=== PATIENT | male | born 1960 | race African-American/Black ===

== ENCOUNTER 2018-02-26 20:22 | Emergency (ER) | payer BC ==
--- NOTE | 2018-02-26 20:28 | PDOC ---
History of Present Illness - History of Present Illness Initial Comments: 02/26/18 21:12 The patient is a 57 year old male, with a significant PMH of right total hip replacement, who presents to the emergency department with right hip pain s/p slip and fall just prior to arrival. The patient states that he was taking a shower in the tub when he slipped and fell on to the right hip. The patient denies any head strike/ injury or loss of consciousness. The patient states after the fall he was able to ambulate but reports pain with ambulation. The patient states he had a total right hip replacement on February 06, 2018. He denies any numbness, tingling or loss of sensation. Denies back pain or neck pain. Denies any weakness. Denies any bowel or bladder incontinence. The patient denies chest pain, shortness of breath, headache and dizziness. Denies fever, chills, nausea, vomit, diarrhea and constipation. Denies dysuria, frequency, urgency and hematuria. PAST MEDICAL HISTORY: right hip osteoarthritis PAST SURGICAL HISTORY: right total hip replacement FAMILY HISTORY: no pertinent history SOCIAL HISTORY: Pt lives with family and is employed. MEDICATIONS: reviewed ALLERGIES: As per nursing notes Review of Systems: General: No fevers or chills, no weakness, no weight loss HEENT: No change in vision. No sore throat,. No ear pain CardioVascular: No chest pain or shortness of breath Respiratory:No cough, or wheezing. Gastrointestinal: no nausea, vomiting, diarrhea or constipation, No rectal bleeding Genitourinary: No dysuria, hematuria, or frequency Musculoskeletal: +Right hip pain. Neurologic: No headache, vertigo, dizziness or loss of consciousness Psychiatric: nor depression Skin: No rashes or easy bruising Endocrine: no increased thirst or abnormal weight change Allergic: no skin or latex allergy All other systems reviewed and normal Physical Exam: GENERAL: The patient is awake, alert, and fully oriented, in no acute distress. HEAD: Normal with no signs of trauma. EYES: Pupils equal, round and reactive to light, extraocular movements intact, sclera anicteric, conjunctiva clear. EXTREMITIES: Right leg is not externally rotated or shortened. ROM not tested until after x-ray rules out dislocation. +Tenderness on palpation over the lateral right hip. Neurovascular intact. NEUROLOGICAL: Normal speech, normal gait. PSYCH: Normal mood, normal affect. SKIN: Warm, Dry, normal turgor, no rashes or lesions noted. <Guido Dominique - Last Filed: 02/26/18 21:12> - General History Source: Patient Exam Limitations: No Limitations - History of Present Illness Initial Comments: X-ray reviewed by me shows a displaced fracture of the greater trochanter does not involve the prosthesis. 02/26/18 22:09 A portion of this note was documented by scribe services under my direction. I have reviewed the details of the note, within reason, and agree with the documentation. The case summary and management plan written by me. Assessment and plan: This is a 57-year-old male who comes in complaining of right hip pain. Patient's 3 week status post hip replacement. Patient fell in the bathtub. On my exam there is tenderness and ecchymosis over the lateral portion of the hip patient however is able to walk and bear weight. Patient had an x-ray that was positive for a displaced fracture of the greater trochanter does not involve the prosthesis. X-rays were sent to Dr. Moore who was patient's orthopedic surgeon. Patient will follow up with Dr. Moore next week. <Arnie Borjas I - Last Filed: 02/26/18 23:30> - General Chief Complaint: Injury Stated Complaint: RT HIP PAIN S/P SLIP AND FALL Time Seen by Provider: 02/26/18 20:27 Past History <Guido Dominique - Last Filed: 02/26/18 21:12> - Past Medical History Anemia: No Asthma: No Cancer: No Cardiac Disorders: No CVA: No COPD: No CHF: No Dementia: No Diabetes: Yes (2002) GI Disorders: No Disorders: No HTN: Yes Hypercholesterolemia: Yes Liver Disease: No Seizures: No Thyroid Disease: No - Surgical History Abdominal Surgery: No Appendectomy: No Cardiac Surgery: No Cholecystectomy: No Lung Surgery: No Neurologic Surgery: No Orthopedic Surgery: Yes (DANYA SHOULDER SX X2 ON LEFT/RIGHT KNEE ARTHROSCOPY) - Suicide/Smoking/Psychosocial Hx Smoking History: Never smoked Have you smoked in the past 12 months: No Hx Alcohol Use: Yes (OCCASIONAL) Drug/Substance Use Hx: No Substance Use Type: Alcohol Hx Substance Use Treatment: No <Arnie Borjas I - Last Filed: 02/26/18 23:30> - Past Medical History Allergies/Adverse Reactions: Allergies Allergy/AdvReac Type Severity Reaction Status Date / Time No Known Drug Allergies Allergy Verified 02/26/18 20:23 Home Medications: Ambulatory Orders Dulaglutide [Trulicity] 1.5 mg SQ WEEKLY 01/30/18 Insulin Degludec [Tresiba Flextouch U-100] 40 unit SQ DAILY 01/30/18 Metformin HCl [Glucophage] 500 mg PO BID 01/30/18 Metoprolol Tartrate 50 mg PO DAILY 01/30/18 Valsartan/Hydrochlorothiazide [Valsartan-Hctz 320-25 mg Tab] 1 each PO DAILY 12/12 Ascorbic Acid [Vitamin C -] 500 mg PO BID tablet 02/07/18 Aspirin [ASA -] 325 mg PO DAILY@0800 tablet 02/07/18 Multivitamins [Multivit ([facility] Formulary)] 1 tab PO DAILY tab 02/07/18 Oxycodone HCl/Acetaminophen [Percocet 5-325 mg Tablet] 1 - 2 tab PO Q4H PRN #60 tablet MDD 10 02/07/18 Sennosides/Docusate Sodium [Pericolace -] 2 tablet PO BID tablet 02/07/18 traMADol HCL [Ultram -] 50 mg PO Q4H PRN #42 tablet MDD 6 02/07/18 *Physical Exam - Vital Signs Last Vital Signs Temp Pulse Resp BP Pulse Ox 98.4 F 78 18 118/84 100 02/26/18 20:22 02/26/18 20:22 02/26/18 20:22 02/26/18 20:22 02/26/18 20:22 <Guido Dominique - Last Filed: 02/26/18 21:12> *DC/Admit/Observation/Transfer - Attestations Scribe Attestion: 02/26/18 21:13 Documentation prepared by Guido Dominique, acting as medical collector for Arnie Borjas MD. <Guido Dominique - Last Filed: 02/26/18 21:12> - Discharge Dispostion Decision to Admit order: No <Arnie Borjas I - Last Filed: 02/26/18 23:30> Diagnosis at time of Disposition: Acute right hip pain - Discharge Dispostion Disposition: HOME Condition at time of disposition: Stable - Referrals Referrals: Ric Aleman [Primary Care Provider] - - Patient Instructions Additional Instructions: Take you pain medications as perscribed for pain. Call Dr. Moore on tuesday for followup appointment. Return for worsening pain or any concerns. - Post Discharge Activity
[2018-02-26 20:36] VITALS: BP 118/84; PULSE 78; TEMP 98.4; BMI 32.8
== END 2018-02-26 21:42 | disposition home or self-care (01) ==
LOC: FER 20:22
DX: M25.551 Pain in right hip (principal); W18.2XXA Fall in (into) shower or empty bathtub, initial encounter; Y93.E1 Activity, personal bathing and showering; Y92.002 Bathroom of unspecified non-institutional (private) residence as the place of occurrence of the external cause; Z96.641 Presence of right artificial hip joint; I10 Essential (primary) hypertension; E11.9 Type 2 diabetes mellitus without complications; E78.00 Pure hypercholesterolemia, unspecified
CPT/HCPCS: 73523-TC-FY; 99282-25

== ENCOUNTER 2018-05-11 12:43 | Emergency (ER) | payer BC ==
[2018-05-11 12:47] VITALS: BP 122/71; PULSE 86; TEMP 98.6; BMI 32.8
--- NOTE | 2018-05-11 13:12 | PDOC ---
History of Present Illness - General Chief Complaint: Pain, Acute Stated Complaint: RIGHT HIP SLIPPED OUT Time Seen by Provider: 05/11/18 12:50 History Source: Patient Exam Limitations: No Limitations - History of Present Illness Initial Comments: 05/11/18 13:08 57-year-old gentleman history of hypertension, diabetes status post right hip replacement 2 months ago presenting with pain. The patient states he was in his usual state of health until approximate 1 hour ago when he was in that she him in the portal doing some exercises. He bent over and then felt some pain in his right hip, states he was unable to bear weight on it he was helped out of the pool and EMS was called. The patient was in a seated position when EMS arrived at that point he attempted to move his leg and felt his hip slip back in place and was able to ambulate and weight bear. Patient denies any numbness, tingling he notes some mild soreness in his right hip. Patient denies any other injuries, no falls chest pain shortness of breath head injdury. Ortho: Dr. Corado Past History - Past Medical History Allergies/Adverse Reactions: Allergies Allergy/AdvReac Type Severity Reaction Status Date / Time No Known Drug Allergies Allergy Verified 05/11/18 12:44 Home Medications: Ambulatory Orders Dulaglutide [Trulicity] 1.5 mg SQ WEEKLY 01/30/18 Metformin HCl [Glucophage] 500 mg PO BID 01/30/18 Metoprolol Tartrate 50 mg PO DAILY 01/30/18 Valsartan/Hydrochlorothiazide [Valsartan-Hctz 320-25 mg Tab] 1 each PO DAILY 12/12 Anemia: No Asthma: No Cancer: No Cardiac Disorders: No CVA: No COPD: No CHF: No Dementia: No Diabetes: Yes (2002) GI Disorders: No Disorders: No HTN: Yes Hypercholesterolemia: Yes Liver Disease: No Seizures: No Thyroid Disease: No - Surgical History Abdominal Surgery: No Appendectomy: No Cardiac Surgery: No Cholecystectomy: No Lung Surgery: No Neurologic Surgery: No Orthopedic Surgery: Yes (DANYA SHOULDER SX X2 ON LEFT/RIGHT KNEE ARTHROSCOPY) - Suicide/Smoking/Psychosocial Hx Smoking History: Never smoked Have you smoked in the past 12 months: No Hx Alcohol Use: No Drug/Substance Use Hx: No Substance Use Type: Alcohol Hx Substance Use Treatment: No Review of Systems - Review of Systems Able to Perform ROS?: Yes Comments:: 05/11/18 13:10 Constitutional - no reported Fever, Chills, Musculskelatal - +R hip pain no reported back pain, joint swelling skin - no reported bruising, erythema, rash neurological: no reported numbness, focal weakness, tingling, ataxia, hematologic: no reported easy bruising, easy bleeding *Physical Exam - Vital Signs Last Vital Signs Temp Pulse Resp BP Pulse Ox 98.6 F 86 16 122/71 100 05/11/18 12:44 05/11/18 12:44 05/11/18 12:44 05/11/18 12:44 05/11/18 12:44 - Physical Exam Comments: 05/11/18 13:11 GENERAL: The patient is awake, alert, and fully oriented, Nontoxic - in no acute distress. HEAD: Normocephalic, atraumatic. EXTREMITIES: Normal range of motion of b/l hips, knees, ankle, no focal bony tenderness, no edema. NEUROLOGICAL: No facial assymetry, Normal speech, moving all 4 extermities sponatneously and symmetrically PSYCH: Normal mood, normal affect. SKIN: Warm, Dry, normal turgor, ED Treatment Course - RADIOLOGY Radiology Studies Ordered: Category Date Time Status HIP & PELVIS-RIGHT [RAD] Stat Radiology 05/11/18 13:07 Ordered Medical Decision Making - Medical Decision Making 05/11/18 13:12 We'll obtain x-ray to rule out dislocation, it is possible that Mr. Zhu may have dislocated his hip and spontaneously reduced prior to presentation. 05/11/18 14:26 xray neg +fragment in the superior hip, but present on prior xray n osigns of dislcoation case dw dr. corado agrees with dc and supportive care at home *DC/Admit/Observation/Transfer Diagnosis at time of Disposition: Hip pain, acute Qualifiers: Laterality: right Qualified Code(s): M25.551 - Pain in right hip - Discharge Dispostion Disposition: HOME Condition at time of disposition: Improved Decision to Admit order: No - Referrals Referrals: Skyler Corado MD [Staff Physician] - - Patient Instructions Printed Discharge Instructions: DI for Hip Pain Additional Instructions: Return to the emergency department immediately with ANY new, persistent or worsening symptoms. You MUST call and follow up with dr. Oscar kwan 1 week for further evaluation of your symptoms. Results were discussed with you. Please make sure your doctor reviews the results of your emergency evaluation. If you had any xrays during your visit, it was read preliminarily by myself, a Radiologist will review it and if there are any additional findings we will call you. Print Language: NIGERIEN - Post Discharge Activity
== END 2018-05-11 14:31 | disposition home or self-care (01) ==
LOC: FER 12:43
DX: M25.521 Pain in right elbow (principal); E78.00 Pure hypercholesterolemia, unspecified; E11.9 Type 2 diabetes mellitus without complications; I10 Essential (primary) hypertension; Z96.641 Presence of right artificial hip joint
CPT/HCPCS: 73523-TC-FY; 99281-25

== ENCOUNTER 2018-07-31 06:26 | Inpatient (IN) | payer BC, OTHER ==
[2018-07-24 18:03] VITALS: BMI 34.0
[~2018-07-31 06:26] MED LIST: CEFAZOLIN 2 GM in DEXTROSE 5%-WATER - 50 ML IVPB ONE; CELECOXIB 200 MG CAPSULE PO ONE; GABAPENTIN 300 MG CAPSULE (FP) PO ONE; PANTOPRAZOLE 40 MG TABLET (FP) PO ONE; ROPIVICAINE 0.2%/MORPH PF/KETOROLAC - 51ML DISP.SYRINGE IA ONE; TRANEXAMIC ACID 1000 MG/10 ML VIAL IVPUSH ONE; oxyCODONE HCL 10 MG SUSTAINED ACTING TABLET PO ONE
[2018-07-31] MEDS ORDERED: PROPOFOL 20 ML ONE ×4 (07:09→07:18)
[2018-07-31] MEDS ORDERED: SUCCINYLCHOLINE CHLORIDE 200 MG/10 ML VIAL ONE (07:10)
[2018-07-31] MEDS ORDERED: TRANEXAMIC ACID 1000 MG/10 ML VIAL ONE ×3 (07:15→11:14)
[2018-07-31] MEDS ORDERED: ceFAZolin SODIUM 1 GM VIAL ONE ×2 (07:15→07:22)
[2018-07-31] MEDS ORDERED: VANCOMYCIN 1,000 MG VIAL (RESTRICTED TO ID ONLY) ONE (07:15)
[2018-07-31] MEDS ORDERED: PANTOPRAZOLE 40 MG TABLET (FP) ONE (07:16)
[2018-07-31] MEDS ORDERED: CELECOXIB 200 MG CAPSULE ONE (07:17)
[2018-07-31] MEDS ORDERED: oxyCODONE HCL 10 MG SUSTAINED ACTING TABLET ONE (07:17)
[2018-07-31] MEDS ORDERED: GABAPENTIN 300 MG CAPSULE (FP) ONE (07:17)
[2018-07-31] MEDS ORDERED: BUPIVACAINE HCL/PF 0.5% (5MG/ML) 10 ML VIAL ONE (07:24)
[2018-07-31] MEDS ORDERED: ROPIVACAINE HCL 0.5% 30ML VIAL ONE (07:44)
[2018-07-31] MEDS ORDERED: EPINEPHrine/PF 1 MG/1 ML (1:1,000) AMPULE ONE (07:44)
[2018-07-31] MEDS ORDERED: MIDAZOLAM HCL 2 MG/2 ML SINGLE DOSE VIAL ONE ×2 (07:44→10:56)
--- NOTE | 2018-07-31 07:58 | HP ---
Admitting History and Physical - Admission Chief Complaint: right hip oateoarthritis x years History of Present Illness: 58 year old male presents in regard to his right hip. Longstanding history of right hip osteoarthritis. Patient complains of pain, limited ROM, difficulty ambulating and difficulty with ADLs. Patient has failed conservative treatment measures including PO medication, activity modification, injections and exercise programs. At this point, patient would like to proceed with surgical intervention - right total hip arthroplasty, MAKOplasty. * - Past Medical History Cardiovascular: Yes: HTN Endocrine: Yes: Diabetes Mellitus - Past Surgical History Additional Past Surgical History: See written history and physical. - Smoking History Smoking history: Never smoked Have you smoked in the past 12 months: No - Alcohol/Substance Use Hx Alcohol Use: No Home Medications - Allergies Allergies/Adverse Reactions: Allergies Allergy/AdvReac Type Severity Reaction Status Date / Time No Known Drug Allergies Allergy Verified 07/24/18 17:55 - Home Medications Home Medications: Ambulatory Orders Dulaglutide [Trulicity] 1.5 mg SQ WEEKLY 01/30/18 Metformin HCl [Glucophage] 500 mg PO BID 01/30/18 Metoprolol Tartrate 50 mg PO DAILY 01/30/18 Valsartan/Hydrochlorothiazide [Valsartan-Hctz 320-25 mg Tab] 1 each PO DAILY 12/12 Insulin Degludec [Tresiba] 1 each SQ DAILY 07/24/18 Review of Systems - Review of Systems Musculoskeletal: reports: Decreased ROM (right hip), Joint Pain (right hip) Physical Examination Vital Signs: Vital Signs Temperature 97.8 F 07/31/18 06:58 Pulse Rate 81 07/31/18 06:58 Respiratory Rate 17 07/31/18 06:58 Blood Pressure 138/91 07/31/18 06:58 O2 Sat by Pulse Oximetry (%) Constitutional: Yes: Well Nourished, No Distress Eyes: Yes: Conjunctiva Clear HENT: Yes: Atraumatic, Normocephalic Neck: Yes: Supple Cardiovascular: Yes: Regular Rate and Rhythm Respiratory: Yes: Regular Gastrointestinal: Yes: Soft ...Rectal Exam: Yes: Deferred Musculoskeletal: Yes: Joint Stiffness (right hip) Assessment/Plan 58 year old male presents in regard to his right hip. Longstanding history of right hip osteoarthritis. Patient complains of pain, limited ROM, difficulty ambulating and difficulty with ADLs. Patient has failed conservative treatment measures including PO medication, activity modification, injections and exercise programs. At this point, patient would like to proceed with surgical intervention - right total hip arthroplasty, MAKOplasty. Pros, cons, risks, benefits and alternatives of a right total hip arthroplasty, MAKOplasty were discussed with the patient at length. Patient confirms his understanding and consents to proceed with a right total hip arthroplasty, MAKOplasty. *
[2018-07-31] MEDS ORDERED: ROPIVICAINE 0.2%/MORPH PF/KETOROLAC - 51ML DISP.SYRINGE IA ONE ×2 (09:23→10:30)
[2018-07-31] MEDS ORDERED: VANCOMYCIN 1,000 MG VIAL (RESTRICTED TO ID ONLY) IVPB ONE (10:27)
[2018-07-31] MEDS ORDERED: TRANEXAMIC ACID 1000 MG/10 ML VIAL IVPUSH ONE (10:28)
[2018-07-31] MEDS ORDERED: ceFAZolin SODIUM 1 GM VIAL IVPB ONE (10:29)
[2018-07-31] MEDS ORDERED: LABETALOL HCL 5 MG/1 ML (100MG/20 ML VIAL) ONE (11:14)
--- NOTE | 2018-07-31 12:24 | OP ---
Operative Note - Note: Operative Date: 07/31/18 Pre-Operative Diagnosis: Right hip instability Operation: Revision of right hip replacement head ball, ORIF of trochanter fracture Post-Operative Diagnosis: Same as Pre-op Surgeon: Skyler Moore Assistant Producer: Genet Harding Anesthesia: Spinal Estimated Blood Loss (mls): 250
[2018-07-31] MEDS ORDERED: MAG HYDROX/AL HYDROX/SIMETH 30 ML UNIT-DOSE CUP PO PRN (12:26)
[2018-07-31] MEDS ORDERED: MAGNESIUM HYDROX 2400MG/30ML ORAL SUSPENSION 30 ML CUP PO PRN (12:26)
[2018-07-31] MEDS ORDERED: ACETAMINOPHEN 1000 MG/100 ML VIAL (NON FORMULARY) IVPB ONE ×2 (12:28→12:35)
[2018-07-31] MEDS ORDERED: LACTATED RINGERS SOLUTION 1,000 ML IV SCH (12:30)
[2018-07-31] MEDS ORDERED: KETOROLAC TROMETHAMINE 30 MG/1 ML VIAL IVPUSH ONE (12:30)
[2018-07-31] MEDS ORDERED: PATIENT'S OWN MEDICATION (NON-FORMULARY) (Dulaglutide [Trulicity] 1.5 MG) SQ SCH (12:30)
[2018-07-31] MEDS ORDERED: traMADol HCL 50 MG TABLET PO ONE (12:45)
[2018-07-31] MEDS: metFORMIN HCL 500 MG TABLET (FP) PO SCH (16:25)
[2018-07-31] MEDS: traMADol HCL 50 MG TABLET PO SCH ×2 (16:27→18:02)
[2018-07-31] MEDS: KETOROLAC TROMETHAMINE 30 MG/1 ML VIAL IVPUSH SCH ×2 (16:27→18:01)
[2018-07-31] MEDS ORDERED: oxyCODONE HCL 5 MG TABLET ONE (17:46)
[2018-07-31] MEDS: CEFAZOLIN 2 GM/D5W 2 GM/50 ML ML IVPB SCH (18:01)
[2018-07-31] MEDS: INSULIN (NOVOLOG) ASPART 100 UNITS/ML 10ML VIAL SQ SCH (18:01)
[2018-07-31] MEDS ORDERED: oxyCODONE HCL 5 MG TABLET PO PRN (18:48)
[2018-07-31] MEDS: CELECOXIB 200 MG CAPSULE PO SCH (21:14)
[2018-07-31] MEDS: oxyCODONE HCL 10 MG SUSTAINED ACTING TABLET PO SCH (21:14)
[2018-07-31] MEDS: GABAPENTIN 300 MG CAPSULE (FP) PO SCH (21:14)
[2018-07-31] MEDS: ASCORBIC ACID 500 MG TABLET (FP) PO SCH (21:14)
[2018-07-31] MEDS: ACETAMINOPHEN 325 MG TABLET (FP) PO SCH (21:15)
[2018-07-31] MEDS: SENNOSIDES/DOCUSATE COMBO (SENNA PLUS) TABLET (UD) PO SCH (21:15)
[2018-08-01] MEDS: KETOROLAC TROMETHAMINE 30 MG/1 ML VIAL IVPUSH SCH ×2 (00:10→06:13)
[2018-08-01] MEDS: CEFAZOLIN 2 GM/D5W 2 GM/50 ML ML IVPB SCH (01:09)
[2018-08-01] MEDS: traMADol HCL 50 MG TABLET PO SCH ×4 (01:17→18:33)
[2018-08-01] MEDS: oxyCODONE HCL 5 MG TABLET PO PRN ×2 (02:15→06:15)
[2018-08-01] MEDS: ACETAMINOPHEN 325 MG TABLET (FP) PO SCH ×4 (02:40→20:33)
[2018-08-01] MEDS: metFORMIN HCL 500 MG TABLET (FP) PO SCH ×2 (06:13→17:00)
[2018-08-01 07:40] LABS: HEMATOCRIT 36.4 % (35.4-49); MCH 27.1 pg (25.7-33.7); MEAN CELL VOLUME 82.1 fl (80-96); MEAN PLT VOLUME 8.5 fl (7.5-11.1); PLATELET COUNT 223 K/MM3 (134-434); RBC 4.44 M/mm3 (4.00-5.60); RDW 13.3 % (11.9-15.9); WHITE BLOOD COUNT 6.9 K/mm3 (4.0-10.8)
[2018-08-01 08:00] LABS: ANION GAP 9 MMOL/L (8-16); BLOOD UREA NITROGEN 26 mg/dl (7-18); CALCIUM 8.4 mg/dl (8.5-10); CHLORIDE 101 mmol/L (98-107); CO2 25 mmol/L (21-32); CREATININE 1.6 mg/dl (0.55-1.3); GLUCOSE,RANDOM 192 mg/dl (74-106); POTASSIUM 3.9 mmol/L (3.5-5.1); SODIUM 135 mmol/L (136-145)
[2018-08-01] MEDS: ASPIRIN 325 MG TABLET PO SCH (08:45)
[2018-08-01] MEDS: oxyCODONE HCL 10 MG SUSTAINED ACTING TABLET PO SCH (09:42)
[2018-08-01] MEDS: CELECOXIB 200 MG CAPSULE PO SCH ×2 (09:42→21:56)
[2018-08-01] MEDS: SENNOSIDES/DOCUSATE COMBO (SENNA PLUS) TABLET (UD) PO SCH ×2 (09:42→21:56)
[2018-08-01] MEDS: ASCORBIC ACID 500 MG TABLET (FP) PO SCH ×2 (09:43→21:56)
[2018-08-01] MEDS: METOPROLOL TARTRATE 50 MG TABLET (FP) PO SCH (09:43)
[2018-08-01] MEDS: HYDROCHLOROTHIAZIDE 25 MG TABLET (FP) PO SCH (09:43)
[2018-08-01] MEDS: VALSARTAN 160 MG TABLET (UD) PO SCH (09:43)
[2018-08-01] MEDS: GABAPENTIN 300 MG CAPSULE (FP) PO SCH ×2 (09:43→22:33)
[2018-08-01] MEDS: MULTIVITAMINS (DAILY MVI) TABLET (FP) PO SCH (09:43)
[2018-08-01] MEDS: PANTOPRAZOLE 40 MG TABLET (FP) PO SCH (09:43)
[2018-08-01] MEDS ORDERED: PATIENT'S OWN MEDICATION (NON-FORMULARY) (Valsartan/Hydrochlorothiazide [Valsartan-Hctz 32 PO SCH (10:00)
[2018-08-01] MEDS ORDERED: INSULIN DEGLUDEC SQ SCH (10:00)
[2018-08-01] MEDS: ONDANSETRON 4 MG/2 ML VIAL IVPUSH PRN (10:02)
[2018-08-01] MEDS ORDERED: FAMOTIDINE 20 MG/50 ML IVPB 20 MG/50 ML MG IVPB ONE (10:20)
[2018-08-01] MEDS: INSULIN (NOVOLOG) ASPART 100 UNITS/ML 10ML VIAL SQ SCH ×4 (11:01→21:56)
--- NOTE | 2018-08-01 12:25 | PN ---
Progress Note (short form) - Note Progress Note: 58M POD1 s/p revision R THR under spinal anesthetic with peripheral nerve block for post operative pain relief doing well. Pt states that pain is well controlled and reports no anesthetic complications. AVSS. Motor and sensory function intact in bilateral lower extremities. Continue current regimen.
--- NOTE | 2018-08-01 17:30 | PATH ---
Surgical Pathology Report Patient Name: BARRINGTON LOUISE Med. Rec. #: [id number] /Age/Gender: 1960 (Age: 58) / M Account: [id number] Location: [facility] MED-SURG Taken: 07/31/2018 Received: 07/31/2018 Reported: 08/01/2018 Physicians: Skyler Moore M.D. Specimen(s) Received HARDWARE RIGHT HIP Clinical History Osteoarthritis right hip Final Diagnosis HIP, RIGHT, HARDWARE, REMOVAL: SURGICAL HARDWARE. MACROSCOPIC DIAGNOSIS. Electronically Signed Annelise Graves M.D. Gross Description Received fresh labeled "hardware right hip," is a 4 cm in diameter x 3 cm in depth white, semicircular device, consistent with a hip prosthesis. No soft tissue is present. No sections are submitted, gross only. /07/31/201807/31/2018
[2018-08-02] MEDS: traMADol HCL 50 MG TABLET PO SCH ×2 (00:13→05:58)
[2018-08-02] MEDS: ONDANSETRON 4 MG/2 ML VIAL IVPUSH PRN (00:56)
[2018-08-02] MEDS: ACETAMINOPHEN 325 MG TABLET (FP) PO SCH ×2 (02:16→10:53)
[2018-08-02] MEDS: INSULIN (NOVOLOG) ASPART 100 UNITS/ML 10ML VIAL SQ SCH (06:18)
[2018-08-02] MEDS: metFORMIN HCL 500 MG TABLET (FP) PO SCH (06:18)
[2018-08-02 06:29] VITALS: BP 125/77; PULSE 87; TEMP 98.6
[2018-08-02 07:17] LABS: HEMATOCRIT 33.8 % (35.4-49); MCH 26.6 pg (25.7-33.7); MCHC 32.6 g/dl (32.0-35.9); MEAN CELL VOLUME 81.8 fl (80-96); MEAN PLT VOLUME 8.2 fl (7.5-11.1); PLATELET COUNT 211 K/MM3 (134-434); RBC 4.14 M/mm3 (4.00-5.60); RDW 13.5 % (11.9-15.9); WHITE BLOOD COUNT 8.1 K/mm3 (4.0-10.8)
[2018-08-02 07:31] LABS: ANION GAP 8 MMOL/L (8-16); BLOOD UREA NITROGEN 25 mg/dl (7-18); CALCIUM 8.4 mg/dl (8.5-10); CHLORIDE 98 mmol/L (98-107); CO2 25 mmol/L (21-32); CREATININE 1.5 mg/dl (0.55-1.3); GLUCOSE,RANDOM 247 mg/dl (74-106); POTASSIUM 4.2 mmol/L (3.5-5.1); SODIUM 131 mmol/L (136-145)
--- NOTE | 2018-08-02 09:18 | PN ---
Progress Note (short form) - Note Progress Note: Pt seen and examined Tuesday. Doing well. AVSS Selected Entries 08/01/18 08/02/18 08/02/18 21:59 06:00 06:26 Temperature 98.5 F 98.6 F Pulse Rate 89 87 Respiratory 18 19 Rate Blood Pressure 134/86 125/77 O2 Sat by Pulse 99 Oximetry (%) Oxygen Delivery Room Air Method Laboratory Tests 08/01/18 08/01/18 08/02/18 06:30 06:30 07:00 WBC 6.9 8.1 Hgb 12.0 11.0 L Hct 36.4 33.8 L Plt Count 223 211 Sodium 135 L Potassium 3.9 Chloride 101 Carbon Dioxide 25 Anion Gap 9 BUN 26 H Creatinine 1.6 H Random Glucose 192 H Calcium 8.4 L 08/02/18 07:00 WBC Hgb Hct Plt Count Sodium 131 L Potassium 4.2 Chloride 98 Carbon Dioxide 25 Anion Gap 8 BUN 25 H Creatinine 1.5 H Random Glucose 247 H Calcium 8.4 L Gen: NAD RLE: c/d/i, NVID A/P 58yo male s/p R hip revision PT/OOB - WBAT RLE D/C home
--- NOTE | 2018-08-02 09:23 | DS ---
Physical Examination Vital Signs: Vital Signs Temperature 98.6 F 08/02/18 06:00 Pulse Rate 87 08/02/18 06:00 Respiratory Rate 19 08/02/18 06:00 Blood Pressure 125/77 08/02/18 06:00 O2 Sat by Pulse Oximetry (%) 99 08/02/18 06:26 Labs: CBC, BMP 08/02/18 07:00 08/02/18 07:00 Discharge Summary Reason For Visit: OSTEOARTHRITIS Current Active Problems Recurrent dislocation, right hip (Acute) Procedures: Principal: Revision of right hip replacement / ORIF trochanter fracture Hospital Course: Admitted for elective surgery. Procedure performed without complications. Pt received postoperative antibiotic prophylaxis and DVT ppx. Ambulated with physical therapy. Stable for discharge home with outpatient followup. Condition: Stable - Instructions Diet, Activity, Other Instructions: Dr Moore - Hip Replacement Instructions Keep the Aquacel dressing on until removed by Dr. Moore in 10-14 days - it is antibacterial and waterproof and you can shower with it on. Call the office for a follow-up appointment with Dr. Moore in 10-14 days. Take one Aspirin 325mg daily for 6 weeks to prevent blood clots in your legs. Take one Pantoprazole 40mg daily for 6 weeks to protect against heartburn and ulcers. Take Cephalexin (antibiotic) 3x/day for 14 days to help prevent skin infection. Take a multivitamin, stool softener and extra Vitamin C supplement daily. For pain: *Mild pain (1-3/10): Take 1 Tramadol tablet every 4 hours as needed. Moderate pain (4-6/10): Take 1 Tramadol tablet and 1 Percocet tablet every 4 hours as needed. Severe pain (7-10/10): Take 1 Tramadol tablet and 2 Percocet tablets every 4 hours as needed. Activity: You can put as much weight on the operative leg as you want. For the first 6 weeks, all you need to do is walk around the house, go up/down stairs, and sit down/get up. After 6 weeks when everything is healed (and bone has grown into the implant) you will be sent for more intensive outpatient physical therapy. USE A WALKER AT ALL TIMES TO MINIMIZE STRESS ON THE REPAIRED BONE Expect to see swelling / bruising from the operative site all the way down to your toes. Wear the Compression stocking on the operative side during the day to minimize how much swelling there is in your foot/ankle. Don't wear the stocking at night. You don't have to wear the stocking on the other side. Disposition: VNS/HOME HEALTH CARE - Home Medications Comprehensive Discharge Medication List: Ambulatory Orders Dulaglutide [Trulicity] 1.5 mg SQ WEEKLY 01/30/18 Metformin HCl [Glucophage] 500 mg PO BID 01/30/18 Metoprolol Tartrate 50 mg PO DAILY 01/30/18 Valsartan/Hydrochlorothiazide [Valsartan-Hctz 320-25 mg Tab] 1 each PO DAILY 12/12 Insulin Degludec [Tresiba] 1 each SQ DAILY 07/24/18 Ascorbic Acid [Vitamin C -] 500 mg PO BID tablet 08/02/18 Aspirin [ASA -] 325 mg PO DAILY@0800 tablet 08/02/18 Cephalexin Monohydrate [Keflex -] 500 mg PO TID #42 capsule 08/02/18 Multivitamins [Multivit ([facility] Formulary)] 1 tab PO DAILY tab 08/02/18 Oxycodone HCl/Acetaminophen [Percocet 5-325 mg Tablet] 1 - 2 tab PO Q4H PRN #60 tablet MDD 10 08/02/18 Pantoprazole Sodium [Protonix -] 40 mg PO DAILY #40 tablet.ec 08/02/18 Sennosides/Docusate Sodium [Pericolace -] 2 tablet PO BID tablet 08/02/18 traMADol HCL [Ultram -] 50 mg PO Q4H PRN #90 tablet MDD 6 08/02/18
[2018-08-02] MEDS: VALSARTAN 160 MG TABLET (UD) PO SCH (10:53)
[2018-08-02] MEDS: ASPIRIN 325 MG TABLET PO SCH (10:53)
[2018-08-02] MEDS: HYDROCHLOROTHIAZIDE 25 MG TABLET (FP) PO SCH (10:54)
[2018-08-02] MEDS: ASCORBIC ACID 500 MG TABLET (FP) PO SCH (10:59)
[2018-08-02] MEDS: SENNOSIDES/DOCUSATE COMBO (SENNA PLUS) TABLET (UD) PO SCH (10:59)
[2018-08-02] MEDS: MULTIVITAMINS (DAILY MVI) TABLET (FP) PO SCH (10:59)
[2018-08-02] MEDS: METOPROLOL TARTRATE 50 MG TABLET (FP) PO SCH (10:59)
[2018-08-02] MEDS: GABAPENTIN 300 MG CAPSULE (FP) PO SCH (10:59)
[2018-08-02] MEDS: PANTOPRAZOLE 40 MG TABLET (FP) PO SCH (10:59)
--- NOTE | 2018-09-22 06:28 | OP ---
DATE OF OPERATION: 07/31/2018 PREOPERATIVE DIAGNOSIS: Right hip trochanter avulsion fracture and instability. POSTOPERATIVE DIAGNOSIS: Right hip trochanter avulsion fracture and instability. PROCEDURE: Revision of right total hip replacement, femoral head and open reduction, internal fixation of trochanter fracture. INDICATIONS: This is a 58-year-old male who initially underwent a right total hip replacement on February 06, 2018. The patient did well postoperatively but slipped and fell resulting in an avulsion of the greater trochanter of the hip. He continued to progress with his recovery but had multiple instances of subluxation and spontaneous reduction which caused him great discomfort and apprehension. The patient was seen and examined in the office after this had happened multiple times and it was felt that a revision to a higher offset head and repair of the trochanteric avulsion fracture would potentially restore stability to his hip. The risks, benefits and alternatives to the procedure were explained to the patient in great detail and he elected to proceed with the surgery. On the day of surgery the patient was taken to the operating room and placed on the OR table. Spinal anesthesia was administered by the anesthesiologist. The patient was then positioned in the lateral decubitus position on the table and all bony prominences were padded. An axillary roll was placed. The right lower extremity was then prepped and draped in the usual sterile fashion and intravenous antibiotics were given for infection prophylaxis. A surgical timeout was then performed with the team and the patients identity, procedure, side, availability of implants and the administration of antibiotics were confirmed. An approximately 15-cm longitudinal incision was made through the skin centered on the greater trochanter of the hip utilizing the previous surgical incision scar. The dissection was carried down through the subcutaneous tissues to the deep fascia which was then incised. A Cobra was then placed around the inferior neck of the prosthesis. Electrocautery was used to reflect the anterior 40% of the gluteus medius and minimus utilizing the previous surgical incision scar. The cuff was left for closure. This was reflected to reveal the pseudocapsule which was then incised to reveal the prosthesis. An osteotome was used to dislodge the femoral head from the taper on the neck and the femoral head was removed. Prior to this being performed the hip was dislocated using traction and external rotation as well as a bone hook for anterior traction. Once this was completed various head trials were used to test stability and we found that the +8-mm head provided the greatest stability. The head that was removed was a +4-mm offset head so this provided an additional 4 mm. The hip was thoroughly irrigated with normal saline and the new head was impacted in place and the hip was reduced. Attention was then turned to the greater trochanter fracture. This avulsion fragment did include a portion of the gluteus medius tendon and therefore we felt that it should be repaired to improve stability of the hip. A Niraj 110-mm trochanter plate was used to hook the fragment and using traction bring it back to the remainder of the trochanter. The plate was then affixed to the femur with [employer] cerclage cables. There was somewhat of a bony defect seen in the trochanteric fragment in that the pieces did not appear to judge in together. Therefore, DBX bone matrix was mixed with cancellous bone chips and the resultant paste was packed into bone voids around the trochanter and the reduced fragment. The wound was then thoroughly irrigated with normal saline being careful not to dislodge the DBX and bone chips. A 3-minute dilute Betadine lavage was performed. Following this the wound was again thoroughly irrigated with normal saline via pulsatile lavage. Wound closure was started by repairing the abductor muscles with a No. 2 FiberWire stitch in a Krackow configuration and attached to the greater trochanter. This repair was then reinforced with a No. 0 V-Loc 180 barbed suture. Next, No. 0 V-Loc 180 barbed suture was used to close the deep fascia and IT band. The deep subcutaneous tissue was closed with No. 1 Vicryl sutures; 2-0 V-Loc 90 sutures were used for the superficial subcutaneous tissues; the skin was closed using both 3-0 V-Loc 90 suture in a running subcuticular fashion and Dermabond skin adhesive. Once this was completed a sterile dressing was applied. The patient was then awakened and taken to the PACU in stable condition. PETRA KING M.D. [id number]
== END 2018-08-02 10:38 | disposition home health service (06) | DRG 466 ==
LOC: FM/S 06:26
PROVIDERS: ADMIT Student in an Organized Health Care Education/Training Program; ATTEND Student in an Organized Health Care Education/Training Program
PROC: 0SP90JZ Removal of Synthetic Substitute from Right Hip Joint, Open Approach (ICD-10-PCS; 2018-07-31)
PROC: 0QS604Z Reposition Right Upper Femur with Internal Fixation Device, Open Approach (ICD-10-PCS; 2018-07-31)
PROC: 0LQJ0ZZ Repair Right Hip Tendon, Open Approach (ICD-10-PCS; 2018-07-31)
PROC: 0SR90JZ Replacement of Right Hip Joint with Synthetic Substitute, Open Approach (ICD-10-PCS; principal; 2018-07-31 08:00)
DX: M97.01XA Periprosthetic fracture around internal prosthetic right hip joint, initial encounter (principal); S72.114A Nondisplaced fracture of greater trochanter of right femur, initial encounter for closed fracture; T84.89XA Other specified complication of internal orthopedic prosthetic devices, implants and grafts, initial encounter; Y83.8 Other surgical procedures as the cause of abnormal reaction of the patient, or of later complication, without mention of misadventure at the time of the procedure; Y92.018 Other place in single-family (private) house as the place of occurrence of the external cause; M16.11 Unilateral primary osteoarthritis, right hip; E11.9 Type 2 diabetes mellitus without complications; I10 Essential (primary) hypertension; Z79.84 Long term (current) use of oral hypoglycemic drugs
CPT/HCPCS: 36415; 73502-TC-RT-FY; 80048; 82962; 85027; 88300-TC; 94760; 97116-GP; 97162-GP; J0131